=== PATIENT | male | born 1985 | race African-American/Black ===

== ENCOUNTER 2017-09-01 09:16 | Day surgery (SDC) | payer OTHER ==
[2017-09-01] MEDS ORDERED: LR 1,000 ML IV (10:00)
[2017-09-01] MEDS ORDERED: LIDOCAINE 2% INJ 100 MG/5 ML SDV (FOR ANES.) As Ordered (10:23)
[2017-09-01] MEDS ORDERED: PROPOFOL 200 MG/20 ML VIAL As Ordered ×2 (10:23)
[2017-09-01] MEDS ORDERED: ONDANSETRON 4MG/2ML VIAL (J2405) As Ordered (10:23)
[2017-09-01] MEDS ORDERED: ROCURONIUM BROMIDE 50 MG/5 ML VIAL As Ordered (10:23)
[2017-09-01] MEDS ORDERED: MIDAZOLAM INJ 2 MG/2 ML VIAL (J2250) As Ordered (10:26)
[2017-09-01] MEDS ORDERED: fentaNYL 100 MCG/2 ML INJECTION (J3010) As Ordered ×2 (10:26→13:13)
[2017-09-01] MEDS ORDERED: LIDOCAINE 1% MDV 20ML VIAL As Ordered (11:47)
[2017-09-01] MEDS ORDERED: BUPIVACAINE HCL 0.5% 10 ML VIAL As Ordered (11:48)
[2017-09-01] MEDS ORDERED: dexameTHASONE 4 MG/ML 1ML VIAL (J1100) As Ordered ×3 (12:30)
[2017-09-01] MEDS ORDERED: GLYCOPYRROLATE INJ 0.2 MG/ML 2 ML VIAL As Ordered (12:31)
[2017-09-01] MEDS: LR 1,000 ML IV (13:10)
[2017-09-01] MEDS: fentaNYL 100 MCG/2 ML INJECTION (J3010) IV ×2 (13:20→13:30)
[2017-09-01] MEDS ORDERED: MEPERIDINE INJ 25 MG/ML VIAL (J2175) IV (13:30)
[2017-09-01] MEDS ORDERED: ONDANSETRON 4MG/2ML VIAL (J2405) IV (13:30)
[2017-09-01] MEDS ORDERED: PERCOCET 5MG/325MG TAB As Ordered (13:41)
[2017-09-01] MEDS: PERCOCET 5MG/325MG TAB PO ×2 (13:45→14:18)
== END 2017-09-01 15:34 | disposition home or self-care (01) ==
LOC: M SDC 09:16
DX: J35.01 Chronic tonsillitis (principal); J35.1 Hypertrophy of tonsils; G47.33 Obstructive sleep apnea (adult) (pediatric); J45.909 Unspecified asthma, uncomplicated; R06.83 Snoring; E66.9 Obesity, unspecified; Z68.34 Body mass index [BMI] 34.0-34.9, adult
CPT/HCPCS: 42826